=== PATIENT | female | born 1945 | race Caucasian/White ===

== ENCOUNTER 2021-07-20 14:18 | Outpatient (CLI) | payer MEDICARE, MEDICAID, SELFPAY ==
--- NOTE | 2021-07-20 14:31 | USCV_ITS ---
Summer Gardner Age: 75 Gender: F : 1945 Exam Date: 07/20/2021 14:53 Ordering Phys: Nadiya Temple XX Technologist: RUBEN Exam Location: [facility] – [place] Indication: CHRONIC HEART FAILURE BP: 130 / 70 HR: 79 Rhythm: Sinus Technical Quality: Very technically difficult study MEASUREMENTS (Male / Female) Normal Values 2D ECHO LV Diastolic Diameter PLAX 4.6 cm 4.2 - 5.9 / 3.9 - 5.3 cm LV Systolic Diameter PLAX 2.5 cm IVS Diastolic Thickness 1.6 cm 0.6 - 1.0 / 0.6 - 0.9 cm IVS Systolic Thickness 2.1 cm LVPW Diastolic Thickness 1.6 cm 0.6 - 1.0 / 0.6 - 0.9 cm LVPW Systolic Thickness 2.0 cm LV Ejection Fraction 2D Teich 76.8 % LV Ejection Fraction MOD 2C 66.9 % LV Ejection Fraction 2C AL 66.4 % LA Diameter 3.2 cm LA Width 2.9 cm LA Height 3.5 cm RA Width 2.7 cm RA Height 3.6 cm Aorta at Sinotubular Diameter 2.6 cm IVC Diameter 1.4 cm M-MODE Aortic Annulus Diameter 3.1 cm LA Ao Ratio MM 1.0 MV E Point Septal Separation 0.6 cm DOPPLER AV Peak Velocity 144.0 cm/s LVOT Peak Velocity 132.0 cm/s MV Peak Velocity 111.0 cm/s MV Area PHT 4.3 cm squared Mitral E to A Ratio 0.6 MV E' Velocity 36.0 cm/s Mitral E to MV E' Ratio 7.3 Mitral E to LV E' Lateral Ratio 7.1 Mitral E to LV E' Septal Ratio 7.6 TR Peak Velocity 154.7 cm/s TR Peak Gradient 9.6 mmHg TR Mean Velocity 118.7 cm/s TR Mean Gradient 6.3 mmHg TR Velocity Time Integral 34.1 cm TV Peak E Velocity 31.0 cm/s Right Atrial Pressure 3.0 mmHg Pulmonary Artery Systolic Pressu 12.6 mmHg PV Peak Velocity 105.0 cm/s RV Acceleration Time 0.1 s RV Ejection Time 0.3 s RV AcT/ET 0.3 FINDINGS Left Ventricle Technically very limited quality echocardiogram because of poor ultrasonic windows. LV systolic function is normal with EF of 55 to 60%. No regional wall motion normalities seen. Grade 1 diastolic dysfunction. Right Ventricle Grossly normal Right Atrium Grossly normal Left Atrium Grossly normal Mitral Valve Not well visualized. Mild mitral regurgitation Aortic Valve Not well-visualized. No significant stenosis based on Doppler data Tricuspid Valve Mild tricuspid regurgitation. Valve is not well visualized. Pulmonic Valve Not well-visualized Pericardium Grossly normal Aorta IVC CONCLUSIONS Technically very limited quality echocardiogram because of poor ultrasonic windows. LV systolic function is normal with EF 55 to 60%. Grade 1 diastolic dysfunction. Valvular structures are not well-visualized. Mild mitral regurgitation is seen. Compared to prior echocardiogram from 06/25/2018, no significant changes are seen Jay Benites MD (Electronically Signed) Final Date: 01 August 2021 14:17 S
== END 2021-07-20 14:19 | disposition home or self-care (01) ==
PROVIDERS: Family Provider Family Medicine; Visit Provider Nurse Practitioner Family
DX: I50.9 Heart failure, unspecified (principal)
CPT/HCPCS: 93306

== ENCOUNTER → 2021-08-22 12:12 | Outpatient (BNVA) | payer MEDICARE, MEDICAID, SELFPAY | PROVIDERS: Family Provider Family Medicine; PCP Family Medicine; Visit Provider Internal Medicine Critical Care Medicine | DX: G47.33 Obstructive sleep apnea (adult) (pediatric) (principal); J44.9 Chronic obstructive pulmonary disease, unspecified; G47.34 Idiopathic sleep related nonobstructive alveolar hypoventilation; E66.9 Obesity, unspecified; I10 Essential (primary) hypertension; K21.9 Gastro-esophageal reflux disease without esophagitis; E78.5 Hyperlipidemia, unspecified; Z86.16 Personal history of COVID-19 | CPT/HCPCS: 80053; 85025; 99204 ==

== ENCOUNTER → 2021-09-20 09:05 | Outpatient (BNVA) | payer MEDICARE, MEDICAID, SELFPAY | PROVIDERS: Family Provider Family Medicine; PCP Family Medicine; Visit Provider Internal Medicine Cardiovascular Disease | DX: R06.00 Dyspnea, unspecified (principal); I11.0 Hypertensive heart disease with heart failure; I50.32 Chronic diastolic (congestive) heart failure | CPT/HCPCS: 99203; 99204; 99213; 99214 ==

== ENCOUNTER → 2021-10-22 12:30 | Outpatient (BNVA) | payer MEDICARE, MEDICAID, SELFPAY | PROVIDERS: Family Provider Family Medicine; PCP Family Medicine; Visit Provider Internal Medicine Critical Care Medicine | DX: G47.33 Obstructive sleep apnea (adult) (pediatric) (principal); J44.9 Chronic obstructive pulmonary disease, unspecified; G47.34 Idiopathic sleep related nonobstructive alveolar hypoventilation; E66.9 Obesity, unspecified; Z68.42 Body mass index [BMI] 45.0-49.9, adult; Z87.891 Personal history of nicotine dependence; Z99.81 Dependence on supplemental oxygen | CPT/HCPCS: 99214 ==

== ENCOUNTER 2021-10-23 13:27 | Outpatient (CLI) | payer MEDICARE, MEDICAID, SELFPAY ==
--- NOTE | 2021-10-23 14:27 | PFTS_ITS ---
Date of Study:10/23/21 Date of Dictation: MECHANICS: Forced vital capacity (FVC) is normal. Forced expiratory volume in one second (FEV1) is normal. FEV1/FVC is normal. FLOW VOLUME LOOP: Normal. LUNG VOLUMES: Total lung capacity (TLC) is normal. Residual volume (RV) is reduced. DIFFUSING CAPACITY FOR CARBON MONOXIDE: Normal. INTERPRETATION: The prebronchodilator spirometry is normal. The total lung capacity is normal. There is nonspecific reduction in residual volume. Gas exchange (DLCO) is normal. MTDD
[2021-10-23 14:30] VITALS: O2SAT 89; O2SAT 94
== END 2021-10-23 13:28 | disposition home or self-care (01) ==
LOC: RT 13:32
PROVIDERS: PCP Family Medicine; Visit Provider Internal Medicine Critical Care Medicine
DX: J44.9 Chronic obstructive pulmonary disease, unspecified (principal)
CPT/HCPCS: 94010; 94726; 94729; 94760

== ENCOUNTER 2021-12-10 07:43 | Outpatient (CLI) | payer MEDICARE, MEDICAID, SELFPAY ==
--- NOTE | 2021-12-10 | ECG_ITS ---
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 Interpretive Statements NAME OF STUDY: LEXISCAN SESTAMIBI STRESS TEST INDICATION: Chest Pain PROCEDURE: At the baseline, the blood pressure was 137/84 mmHg with a heart rate of 70 bpm. The electrocardiogram showed normal sinus rhythm, normal axis. Artifact. Normal ST and T's. The Lexiscan was infused over a period of 20 seconds. A total of 0.4 milligrams of Lexiscan was infused. The stress phase was continued for a total of 5 minutes. Heart rate at the end of the stress phase was 77 beats per min with a blood pressure of 111/58 mmHg. The EKG at the peak infusion revealed sinus rhythm with no significant ST-T wave changes. The study was terminated due to protocol completion. Sestamibi was injected 20 seconds after the Lexiscan infusion. Blood pressure at the end of the recovery phase was 100/61 mmHg with a heart rate of 76 beats per minute. CONCLUSION: 1. No significant EKG changes with the LexiScan infusion. 2. No LexiScan induced chest pain or cardiac arrhythmia. 3. Normal blood pressure and heart rate response. 4. Sestamibi/sestamibi perfusion scan pending; see separate report. Electronically Signed On 12-12-2021 16:58:04 CDT by Myah Del Cid M.D. [id number]
[2021-12-10 08:08] VITALS: BMI 46.4
--- NOTE | 2021-12-10 08:17 | NMCV_ITS ---
NM aurora perf SPECT r/s* [id number] Summer Gardner Age: 76 Gender: F : 1945 Exam Date: 12/10/2021 08:51 Ordering Phys: Myah Del Cid MD ([email or web address]) Technologist: CRISTY Lerner Exam Location: [facility] Indications: CHEST PAIN STRESS TEST Please see separate stress test report in [facility] for full findings IMAGE PROTOCOL Rest/Stress 1 Lexiscan Day Radiopharmaceutical Dose (mCi) Administration Site Administered by Rest: Tc-99m 10.6 IV CRISTY Jade Sestamibi Stress:Tc-99m 32.9 IV CRISTY aJde Sestamibi Rest: 10-Dec-2021 60 Discovery 630 Stress: 10-Dec-2021 30 Discovery 630 0.4mg Lexiscan. Images obtained in supine and prone position. SPECT RESULTS Technical Quality: Excellent Raw Data Analysis: Normal Image Corrections: No attenuation or motion correction applied Summed Stress Score: 0 Summed Rest Score: 0 Summed Difference Score: 0 PERFUSION FINDINGS SPECT images demonstrate homogeneous tracer distribution throughout the myocardium. FUNCTIONAL RESULTS (calculated via Gated SPECT) Stress Image LV EF (%): 82 Stress EDV (mL):68 TID: 0.92 Stress ESV (mL):12 FUNCTIONAL FINDINGS: The left ventricle is normal in size. Transient Ischemia Dilatation of 0.92. There is normal left ventricular systolic function. The left ventricular ejection fraction is normal with a value of 82%. There is hyperdynamic left ventricular wall thickening. IMPRESSIONS 1. Myocardial perfusion imaging is normal. 2. Overall left ventricular systolic function is normal without regional wall motion abnormalities, LVEF=82%. 3. No significant EKG changes with Lexiscan infusion. Refer to separate report for details. Myah Del Cid MD (Electronically Signed) Final Date: 12 December 2021 16:58 S
[2021-12-10] MEDS: regadenoson 0.4 Mg/5 ml Syringe IVP (09:28)
[2021-12-10 09:49] VITALS: BP 100/61; PULSE 77
== END 2021-12-10 07:44 | disposition home or self-care (01) ==
LOC: CDL 07:46
PROVIDERS: PCP Family Medicine; Visit Provider Internal Medicine Cardiovascular Disease
DX: R07.9 Chest pain, unspecified (principal)
CPT/HCPCS: 78452; 93017; A9500; J2785

== ENCOUNTER → 2021-12-20 10:30 | Outpatient (BNVA) | payer MEDICARE, MEDICAID, SELFPAY | PROVIDERS: PCP Family Medicine; Visit Provider Internal Medicine Cardiovascular Disease | DX: R06.00 Dyspnea, unspecified (principal); I11.0 Hypertensive heart disease with heart failure; I50.32 Chronic diastolic (congestive) heart failure; Z87.891 Personal history of nicotine dependence | CPT/HCPCS: 99214 ==

== ENCOUNTER → 2022-05-02 08:16 | Outpatient (BNVA) | payer MEDICARE, MEDICAID, SELFPAY | PROVIDERS: PCP Family Medicine; Visit Provider Internal Medicine Pulmonary Disease | DX: J44.9 Chronic obstructive pulmonary disease, unspecified (principal); G47.33 Obstructive sleep apnea (adult) (pediatric); G47.34 Idiopathic sleep related nonobstructive alveolar hypoventilation; E66.9 Obesity, unspecified; Z68.42 Body mass index [BMI] 45.0-49.9, adult; Z87.891 Personal history of nicotine dependence | CPT/HCPCS: 99214 ==

== ENCOUNTER → 2022-08-23 09:08 | Outpatient (BNVA) | payer MEDICARE, MEDICAID, SELFPAY | PROVIDERS: PCP Family Medicine; Visit Provider Internal Medicine Cardiovascular Disease | DX: R06.00 Dyspnea, unspecified (principal); I11.0 Hypertensive heart disease with heart failure; I50.32 Chronic diastolic (congestive) heart failure; E78.2 Mixed hyperlipidemia; G47.33 Obstructive sleep apnea (adult) (pediatric); J44.9 Chronic obstructive pulmonary disease, unspecified; E66.9 Obesity, unspecified; Z68.42 Body mass index [BMI] 45.0-49.9, adult; Z87.891 Personal history of nicotine dependence | CPT/HCPCS: 99214 ==

== ENCOUNTER → 2022-11-06 08:32 | Outpatient (BNVA) | payer MEDICARE, MEDICAID, SELFPAY | PROVIDERS: PCP Family Medicine; Visit Provider Internal Medicine Pulmonary Disease | DX: J44.9 Chronic obstructive pulmonary disease, unspecified (principal); G47.33 Obstructive sleep apnea (adult) (pediatric); G47.34 Idiopathic sleep related nonobstructive alveolar hypoventilation; E66.9 Obesity, unspecified; I50.32 Chronic diastolic (congestive) heart failure; Z68.42 Body mass index [BMI] 45.0-49.9, adult; Z87.891 Personal history of nicotine dependence | CPT/HCPCS: 99214 ==

== ENCOUNTER 2023-07-26 06:02 | Emergency (ER) | payer MEDICARE, MEDICAID, SELFPAY ==
[2023-07-26 06:02] VITALS: BP 124/67; PULSE 77; RESP 16; TEMP 36.5; O2SAT 92; BMI 40.5
--- NOTE | 2023-07-26 06:18 | XRR_ITS ---
PROCEDURE INFORMATION: Exam: XR Right Knee Exam date and time: 07/26/2023 6:22 AM Age: 77 years old Clinical indication: Injury or trauma; Fall; Blunt trauma; Right; Patient HX: Patient fell this morning onto the floor at home walking to bathroom. C/O RT shoulder, elbow, and knee pain. TECHNIQUE: Imaging protocol: Radiologic exam of the right knee. Views: 3 views. COMPARISON: No relevant prior studies available. FINDINGS: Bones/joints: No acute fracture or dislocation. Mild medial and patellofemoral compartment degenerative change. Mild patellar enthesophytes. No joint effusion. Soft tissues: Unremarkable. XR/XR knee RT 3V* [id number] IMPRESSION: No acute findings.
--- NOTE | 2023-07-26 06:18 | XRR_ITS ---
PROCEDURE INFORMATION: Exam: XR Right Shoulder Exam date and time: 07/26/2023 6:22 AM Age: 77 years old Clinical indication: Injury or trauma; Fall; Blunt trauma (contusions or hematomas); Right; Prior surgery; Surgery date: 6+ months; Surgery type: Brain stimulator; Patient HX: Patient fell this morning onto the floor at home walking to bathroom. C/O RT shoulder, elbow, and knee pain. TECHNIQUE: Imaging protocol: Radiologic exam of the right shoulder. Views: 2 or more views. COMPARISON: CR (UP EXM, ) 07/26/2023 6:22 AM FINDINGS: Tubes, catheters and devices: Right chest generator with leads coursing superiorly to the right neck and beyond the field of view. Bones/joints: Mildly displaced comminuted proximal humerus fracture involving the neck and greater tuberosity. No dislocation. Mild acromioclavicular joint arthropathy. Degenerative changes along the imaged spine. Soft tissues: Right shoulder soft tissue swelling. XR/XR shoulder RT min 2V* [id number] IMPRESSION: Mildly displaced comminuted proximal humerus fracture involving the neck and greater tuberosity.
--- NOTE | 2023-07-26 06:18 | XRR_ITS ---
PROCEDURE INFORMATION: Exam: XR Right Elbow Exam date and time: 07/26/2023 6:22 AM Age: 77 years old Clinical indication: Injury or trauma; Fall; Blunt trauma (contusions or hematomas); Right; Patient HX: Patient fell this morning onto the floor at home walking to bathroom. C/O RT shoulder, elbow, and knee pain. TECHNIQUE: Imaging protocol: Radiologic exam of the right elbow. Views: 3 or more views. COMPARISON: CR (CHEST, ) 07/26/2023 6:22 AM FINDINGS: Bones/joints: No acute fracture or dislocation. Joint spacing and alignment are maintained. No joint effusion. Soft tissues: Unremarkable. XR/XR elbow RT min 3V* [id number] IMPRESSION: No acute findings.
--- NOTE | 2023-07-26 06:22 | ED_ITS ---
HPI - Fall 2 General: Chief Complaint: Fall Stated Complaint: Fall Time Seen by Provider: 07/26/23 06:18 Source: patient Mode of arrival: ambulatory History of Present Illness: 77-year-old female presents emergency ro om from home. She had a mechanical ground-level fall when she tripped while walking to the bathroom at her home. She had gotten up to go to the bathroom stumbled and fell. She is complaining of pain to her right elbow right knee and right shoulder. She is holding her arm cradled across her abdomen on arrival from EMS. She denies loss consciousness denies any other injury she does have an abrasion on the right elbow. Unsure of last tetanus shot complaint: fall Onset (ago): minute(s) Fall from: standing Place fall occurred: home Loss of consciousness: None Context: tripped/slipped Location of injury - extremities: Right: shoulder, elbow and knee Associated symptoms-after fall: Denies abdominal pain, chest pain, confusion, difficulty walking, headache(s), hematuria, lightheadedness, neck pain, numbness, short of breath, vertigo or weakness Review of Systems 2 Const: Denies: fever(s) or chills Card: Denies: chest pain or lightheadedness Resp: Denies: dyspnea GI: Denies: abdominal pain : Denies: dysuria, urinary frequency, urinary urgency or hematuria Musc: Denies: neck pain or back pain Skin/Breast: Denies: rash Neuro: Denies: headache(s), difficulty walking, vertigo or confusion PFSH ED 2 PFSH: Medical History Type 2 diabetes mellitus Hearing loss Osteoarthritis of spine with radiculopathy, lumbar region Mixed hyperlipidemia Mixed incontinence urge and stress Obesity GERD (gastroesophageal reflux disease) Allergic rhinitis Diverticulosis of colon OTONIEL (obstructive sleep apnea) 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 Chronic diastolic heart failure Benign hypertension Restless leg syndrome Fatty liver Essential tremor Vitamin D deficiency Aortic atherosclerosis Calcified granuloma of lung Extradural lipoma of spine COVID-19 Osteoporosis Nocturnal hypoxia Chronic respiratory failure with hypoxia Chronic obstructive pulmonary disease Surgical History History of back surgery S/P hysterectomy S/P appendectomy S/P coronary angiogram History of ankle surgery S/P nasal surgery S/P laparoscopic cholecystectomy S/P deep brain stimulator placement Family History Father Myocardial infarction Lung disease Emphysema Hypertension Brother Myocardial infarction Hypertension Sister Myocardial infarction X3 sisters Stroke Hypertension Diabetes Mother Stroke Hypertension Social History Smoking and tobacco/nicotine status: former use of tobacco/nicotine Quit status (tobacco/nicotine): has quit using Year quit tobacco: 1994 Former quit date comment: 2 ppd X 40 years Physical Exam 2 Const: GENERAL APPEARANCE: cooperative and comfortable O RIENTATION/CONSCIOUSNESS: Yes awake, Yes oriented to person, Yes oriented to place and Yes oriented to time HENMT: COMMON NORMALS: normocephalic, atraumatic and hearing grossly normal bilaterally HEAD & SCALP: normocephalic and atraumatic Resp: COMMON NORMALS: normal respiratory effort, No retractions, No use of accessory muscles and clear to auscultation bilaterally AUSCULTATION: clear to auscultation bilaterally Cardio: COMMON NORMALS: regular rate, regular rhythm and No murmurs present (Cardio) RATE: regular rate RHYTHM: regular rhythm GI: COMMON NORMALS: Soft to palpation and No hepatosplenomegaly present A USCULTATION: Yes normoactive bowel sounds PALPATION: Yes Soft to palpation, No Tenderness to palpation present (GI), No Guarding due to palpation present (GI) and Yes No hepatosplenomegaly present Extremity: OTHER: Moderate swelling of the right proximal humerus pain to palpation unable to test range of motion due to pain. X-ray shows proximal humerus fracture Neuro: SENSORIUM/ORIENTATION: Yes oriented to person, Yes oriented to place and Yes oriented to time Skin: OTHER: Abrasion over the olecranon process in the anterior portion of the knee both on the right side no active bleeding no full-thickness laceration Course 2 Vital Signs: Vital signs: Vital Signs Temperature 97.7 F 07/26/23 06:02 Pulse Rate 77 07/26/23 06:02 Respiratory Rate 16 07/26/23 06:02 Blood Pressure 124/67 07/26/23 06:02 Pulse Oximetry 92 07/26/23 06:02 Oxygen Delivery Me thod Nasal Cannula 07/26/23 06:02 Oxygen Flow Rate 2 07/26/23 06:02 MDM - Fall Medical Decision Making Right proximal humerus fracture patient placed in a shoulder immobilizer. Hydrocodone at discharge for pain can apply ice to the proximal humerus. Should leave in the shoulder immobilizer with the exception of being briefly out for bathing or changing clothing. Case management to arrange for follow-up with orthopedics Medical Records I reviewed the patient's medical records. Lab Data I reviewed the patient's lab results. 07/26/23 07:22 07/26/23 07:22 Radiology Impressions Elbow X-Ray 07/26/23 06:18 IMPRESSION: No acute findings. Knee X-Ray 07/26/23 06:18 IMPRESSION: No acute findings. Shoulder X-Ray 07/26/23 06:18 IMPRESSION: Mildly displaced comminuted proximal humerus fracture involving the neck and greater tuberosity. Shoulder CT 07/26/23 06:26 IMPRESSION: Mildly displaced comminuted proximal humerus fracture involving the neck and greater tuberosity with extension to the posterior head. Laboratory Results WBC 14.27 10^3/uL (3.29-11.43) H 07/26/23 07:22 RBC 4.37 10^6/uL (3.85-5.65) 07/26/23 07:22 Hgb 12.80 g/dL (11.27-16.99) 07/26/23 07:22 Hct 40.3 % (36-47) 07/26/23 07:22 MCV 92.2 fl (85-98) 07/26/23 07:22 MCH 29.3 pg (27-33) 07/26/23 07:22 MCHC 31.8 g/dL (30-55) 07/26/23 07:22 RDW 13.4 % (12.1-15.1) 07/26/23 07:22 Plt Count 247 10^3/cmm (157-399) 07/26/23 07:22 MPV 11.1 fL (7.4-10.4) H 07/26/23 07:22 Neut % (Auto) 73.2 % 07/26/23 07:22 Lymph % (Auto) 13.2 % 07/26/23 07:22 [place] % (Auto) 9.5 % 07/26/23 07:22 Eos % (Auto) 2.1 % 07/26/23 07:22 Baso % (Auto) 0.5 % 07/26/23 07:22 Neut # (Auto) 10.43 10^3/uL (1.8-7.7) H 07/26/23 07:22 Lymph # (Auto) 1.9 10^3/uL (0.8-4.8) 07/26/23 07:22 [place]leigh # (Auto) 1.4 10^3/uL (0.2-0.9) H 07/26/23 07:22 Eos # (Auto) 0.3 10^3/uL (0.0-0.8) 07/26/23 07:22 Baso # (Auto) 0.1 10^3/uL (0.0-0.1) 07/26/23 07:22 Nucleated RBC % (auto) 0 % 07/26/23 07:22 Nucleated RBCs # 0.0 /100WBC 07/26/23 07:22 Sodium 135 mmol/L (136-145) L 07/26/23 07:22 Potassium 4.6 mmol/L (3.5-5.1) 07/26/23 07:22 Chloride 97 mmol/L (98-107) L 07/26/23 07:22 Carbon Dioxide 26 mmol/L (22-29) 07/26/23 07:22 Anion Gap 16.6 (5-19) 07/26/23 07:22 BUN 33 mg/dL (8-23) H 07/26/23 07:22 Creatinine 1.1 mg/dL (0.5-0.9) H 07/26/23 07:22 GFR Calculation Not Reportable 07/26/23 07:22 Glucose 203 mg/dL (65-115) H 07/26/23 07:22 Calculated Osmolality 293 mOsm/kg (285-295) 07/26/23 07:22 Calcium 9.1 mg/dL (8.5-10.5) 07/26/23 07:22 Total Bilirubin 0.4 mg/dL (0.15-1.2) 07/26/23 07:22 AST 18 U/L (0-32) 07/26/23 07:22 ALT 13 U/L (0-33) 07/26/23 07:22 Alkaline Phosphatase 92 U/L (35-105) 07/26/23 07:22 Total Protein 7.2 g/dL (6.6-8.7) 07/26/23 07:22 Albumin 3.7 g/dL (3.5-5.2) 07/26/23 07:22 Globulin 3.5 g/dL (1.3-4.6) 07/26/23 07:22 All radiology interpretation(s) finalized by discharge Discharge Plan Discharge Patient Disposition: Home Clinical Impression: Closed fracture of right proximal humerus Qualifiers: Encounter type: initial encounter Fracture morphology: other fracture Fracture alignment: nondisplaced Qualified Code(s): S42.294A - Other nondisplaced fracture of upper end of right humerus, initial encounter for closed fracture Condition: Stable Prescriptions: New hydrocodone-acetaminophen 5-325 mg tablet 1 tab PO Q6H PRN (Reason: pain) Qty: 15 0RF No Action simvastatin 40 mg tablet 40 mg PO DAILY omeprazole 40 mg capsule,delayed release(DR/EC) 40 mg PO DAILY ipratropium bromide 21 mcg (0.03 %) spray,non-aerosol 2 spray intranasal BID Rx Instructions: administer into each nostril pregabalin [Lyrica] 150 mg capsule 150 mg PO BID ropinirole 0.5 mg tablet 1.5 mg PO .COMPLEX Rx Instructions: 1.5 mg PO every HS; ferrous sulfate 325 mg (65 mg iron) tablet 325 mg PO DAILY duloxetine 60 mg capsule, delayed rel sprinkle 60 mg PO DAILY glipizide 10 mg tablet 10 mg PO BID albuterol sulfate 90 mcg/actuation HFA aerosol inhaler 2 puff inhalation 6XD PRN (Reason: shortness of breath or wheezing) montelukast 10 mg tablet 10 mg PO DAILY metformin 1,000 mg tablet 1,000 mg PO BIDWMEAL cetirizine [Zyrtec] 10 mg tablet 10 mg PO DAILY furosemide [Lasix] 80 mg tablet 80 mg PO BID Humalog U-100 Insulin 100 unit/mL cartridge See Rx Instructions .ROUTE .COMPLEX Rx Instructions: s/s before breakfast and supper; losartan 25 mg tablet 25 mg PO DAILY spironolactone 50 mg tablet 50 mg PO DAILY hydrocodone-acetaminophen 5-325 mg tablet 2 tab PO Q8H PRN Stiolto Respimat 2.5-2.5 mcg/actuation mist 2 puff inhalation DAILY 90 Days Qty: 12 3RF Discharge Orders: Discharge ED (Routine); Ordered 07/26/23 Ordered By: Porter Martínez Referrals: Vikram Fleming [Primary Care Provider] - Patient Instructions: Opioid Safety, Pain Management Activity Restrictions/Additional Instructions: Thank you for choosing [facility] for your healthcare needs today. It is very important that you follow up as instructed or that you return to the Emergency Department should you have concerns or if your condition changes or worsens in any way. You were seen today for a fall. You have a fracture of the upper and of the humerus (upper arm bone). These are usually treated with a shoulder immobilizer. Will have you follow-up with the orthopedist next week. You were given pain medications. Also recommend you use ice to the upper arm for comfort. You may take your arm out of the shoulder immobilizer to bays however you should keep the arm cradled and close to the body when you are out of the shoulder immobilizer. You should only remove it for brief periods for things such as bathing or changing her clothes. Case management make arrangements for the follow-up with orthopedic clinic. Coding Level of Care Code ED Mechanical Project Engineer for Enedina Tello
--- NOTE | 2023-07-26 06:26 | CTR_ITS ---
PROCEDURE INFORMATION: Exam: CT Right Upper Extremity Without Contrast, Shoulder Exam date and time: 07/26/2023 6:43 AM Age: 77 years old Clinical indication: Injury or trauma; Fall; Blunt trauma (contusions or hematomas); Shoulder; Right TECHNIQUE: Imaging protocol: Computed tomography of the right upper extremity without contrast. Exam focused on the shoulder. Radiation optimization: All CT scans at this facility use at least one of these dose optimization techniques: automated exposure control; mA and/or kV adjustment per patient size (includes targeted exams where dose is matched to clinical indication); or iterative reconstruction. COMPARISON: 1. CR (CHEST, ) 07/26/2023 6:22 AM 2. CR (UP EXM, ) 07/26/2023 6:22 AM RADIATION DOSE METRICS: Total DLP (mGy-cm): 445.46 FINDINGS: Tubes, catheters and devices: Right chest generator with partially visualized leads coursing superiorly to the right neck. Bones/joints: There is a mildly displaced comminuted proximal humerus fracture involving the neck and greater tuberosity, and extending to the posterior head. Small corticated ossicle anteromedial to the lesser tuberosity in keeping with sequela of old trauma. No dislocation. No aggressive osteolytic or blastic lesion. Mild acromioclavicular joint arthropathy. Soft tissues: Soft tissue swelling about the proximal humerus. CT/CT shoulder RT wo con* [id number] IMPRESSION: Mildly displaced comminuted proximal humerus fracture involving the neck and greater tuberosity with extension to the posterior head.
[2023-07-26] MEDS: ondansetron 2 mg/ML SDV 2 mL 4 MG IVP (07:16)
[2023-07-26] MEDS: morphine 4 mg/mL SDV 1 mL IVP (07:17)
[2023-07-26 07:40] LABS: Basophils # 0.1 10^3/uL (0.0-0.1); Basophils % 0.5 %; Eosinophils # 0.3 10^3/uL (0.0-0.8); Eosinophils % 2.1 %; Hematocrit 40.3 % (36-47); Lymphocytes # 1.9 10^3/uL (0.8-4.8); Lymphocytes % 13.2 %; Mean Corpuscular HGB Conc 31.8 g/dL (30-55); Mean Corpuscular Hemoglobin 29.3 pg (27-33); Mean Corpuscular Volume 92.2 fl (85-98); Mean Platelet Volume 11.1 fL (7.4-10.4); Monocytes # 1.4 10^3/uL (0.2-0.9); Monocytes % 9.5 %; Neutrophils # 10.43 10^3/uL (1.8-7.7); Neutrophils % 73.2 %; Nucleated Red Blood Cells % 0 %; Platelet Count 247 10^3/cmm (157-399); Red Blood Count 4.37 10^6/uL (3.85-5.65); Red Cell Distribution Width 13.4 % (12.1-15.1); White Blood Count 14.27 10^3/uL (3.29-11.43)
[2023-07-26 07:50] LABS: Alanine Aminotransferase 13 U/L (0-33); Albumin Level 3.7 g/dL (3.5-5.2); Alkaline Phosphatase 92 U/L (35-105); Anion Gap 16.6 (5-19); Aspartate Amino Transferase 18 U/L (0-32); Blood Urea Nitrogen 33 mg/dL (8-23); Calcium 9.1 mg/dL (8.5-10.5); Carbon Dioxide 26 mmol/L (22-29); Chloride 97 mmol/L (98-107); Globulin 3.5 g/dL (1.3-4.6); Glucose 203 mg/dL (65-115); Osmolality Calculated 293 mOsm/kg (285-295); Potassium 4.6 mmol/L (3.5-5.1); Sodium 135 mmol/L (136-145); Total Bilirubin 0.4 mg/dL (0.15-1.2); Total Protein 7.2 g/dL (6.6-8.7)
[2023-07-26 08:09] LABS: Creatinine Clr Calc Pharmacy 51.1424
[2023-07-26 08:35] VITALS: BP 119/65; PULSE 87; RESP 18; O2SAT 91
--- NOTE | 2023-07-28 07:36 | DCPLANNER ---
message sent to ortho for er f/u
== END 2023-07-26 08:38 | disposition home or self-care (01) ==
PROVIDERS: Emergency Provider Family Medicine; PCP Family Medicine
DX: S42.294A Other nondisplaced fracture of upper end of right humerus, initial encounter for closed fracture (principal); Z79.84 Long term (current) use of oral hypoglycemic drugs; Z79.4 Long term (current) use of insulin; Z87.891 Personal history of nicotine dependence; E11.9 Type 2 diabetes mellitus without complications; E78.2 Mixed hyperlipidemia; I11.0 Hypertensive heart disease with heart failure; I50.32 Chronic diastolic (congestive) heart failure; J44.9 Chronic obstructive pulmonary disease, unspecified; W01.0XXA Fall on same level from slipping, tripping and stumbling without subsequent striking against object, initial encounter; Y92.009 Unspecified place in unspecified non-institutional (private) residence as the place of occurrence of the external cause
CPT/HCPCS: 73030; 73080; 73200; 73562; 80053; 85025; 96374; 96375; 99285; J2270; J2405

== ENCOUNTER 2023-08-02 01:26 | Emergency (ER) | payer MEDICARE, MEDICAID, SELFPAY ==
[2023-08-02 01:28] VITALS: BP 134/74; PULSE 85; RESP 12; TEMP 36.6; O2SAT 92; BMI 34.3
--- NOTE | 2023-08-02 01:32 | CTR_ITS ---
PROCEDURE INFORMATION: Exam: CT Head Without Contrast Exam date and time: 08/02/2023 1:55 AM Age: 77 years old Clinical indication: Injury or trauma; Blunt trauma (contusions or hematomas); Prior surgery; Surgery date: 6+ months; Surgery type: Brain stimulator; Patient HX: EMS arrival for fall at home. Patient fell hitting back of head on floor. C/O OCONNELL with neck pain. TECHNIQUE: Imaging protocol: Computed tomography of the head without contrast. Radiation optimization: All CT scans at this facility use at least one of these dose optimization techniques: automated exposure control; mA and/or kV adjustment per patient size (includes targeted exams where dose is matched to clinical indication); or iterative reconstruction. COMPARISON: No relevant prior studies available. RADIATION DOSE METRICS: Total DLP (mGy-cm): 1052.48 FINDINGS: Tubes, catheters and devices: Bilateral deep brain stimulators, terminating in the thalami, and resulting in mild beam hardening artifact. Brain: Age-appropriate diffuse cerebral volume loss. No acute intracranial hemorrhage. No abnormal extra-axial fluid collection. No midline shift or mass effect. No acute large territory infarct. Chronic white matter changes, likely to be chronic small-vessel ischemic changes. Cerebral ventricles: No ventriculomegaly. Paranasal sinuses: Visualized paranasal sinuses are clear. Mastoid air cells: Trace right mastoid effusion, nonspecific. Bones: No acute fracture. Bilateral princess holes for deep brain stimulators. Soft tissues: Unremarkable. CT/CT head wo con* [id number] IMPRESSION: 1. No acute intracranial abnormality identified. 2. Bilateral deep brain stimulators, terminating in the thalami, resulting in mild beam hardening artifact.
--- NOTE | 2023-08-02 01:32 | CTR_ITS ---
PROCEDURE INFORMATION: Exam: CT Cervical Spine Without Contrast Exam date and time: 08/02/2023 1:57 AM Age: 77 years old Clinical indication: Injury or trauma; Blunt trauma; Patient HX: EMS arrival for fall at home. Patient fell hitting back of head on floor. C/O OCONNELL with neck pain. TECHNIQUE: Imaging protocol: Computed tomography of the cervical spine without contrast. Radiation optimization: All CT scans at this facility use at least one of these dose optimization techniques: automated exposure control; mA and/or kV adjustment per patient size (includes targeted exams where dose is matched to clinical indication); or iterative reconstruction. COMPARISON: CT head wo con* 08/02/2023 1:55 AM RADIATION DOSE METRICS: Total DLP (mGy-cm): 1117.77 FINDINGS: Tubes, catheters and devices: Mild streak artifact from deep brain stimulator leads in the right posterior neck. Bones: No acute fracture or subluxation. Hion-tn-erdxoiga chronic degenerative changes without severe spinal stenosis. Soft tissues: Visualized paravertebral soft tissues demonstrate no acute abnormality. CT/CT cervical spin wo con* [id number] IMPRESSION: No acute findings.
--- NOTE | 2023-08-02 01:32 | XRR_ITS ---
PROCEDURE INFORMATION: Exam: XR Right Shoulder Exam date and time: 08/02/2023 1:35 AM Age: 77 years old Clinical indication: Injury or trauma; Blunt trauma (contusions or hematomas); Right; Patient HX: Patient fell at home this morning. C/O RT shoulder pain. Sustained humeral fracture due to fall on 07/26/2023. TECHNIQUE: Imaging protocol: Radiologic exam of the right shoulder. Views: 2 or more views. COMPARISON: CT shoulder RT wo con* [id number] 07/26/2023 6:43 AM FINDINGS: Bones/joints: Right proximal humeral fracture, similar in appearance compared to prior imaging. Questionable slight increased displacement. Mild degenerative changes of the acromioclavicular joint. Soft tissues: Moderate diffuse soft tissue swelling. XR/XR shoulder RT min 2V* [id number] IMPRESSION: Questionable slight increased displacement of right proximal humeral fracture difficult to compare given slight differences in projection.
--- NOTE | 2023-08-02 01:32 | XRR_ITS ---
PROCEDURE INFORMATION: Exam: XR Right Elbow Exam date and time: 08/02/2023 1:35 AM Age: 77 years old Clinical indication: Injury or trauma; Blunt trauma (contusions or hematomas); Right; Patient HX: Fall at home this morning. C/O RT elbow pain. TECHNIQUE: Imaging protocol: Radiologic exam of the right elbow. Views: 3 or more views. COMPARISON: CR (UP EXM, ) 07/26/2023 6:22 AM FINDINGS: Limitations: Oblique lateral view. Bones/joints: Evaluation for joint effusion is limited. No definitive evidence of acute fracture or dislocation. Soft tissues: The soft tissues are within normal limits. XR/XR elbow RT min 3V* [id number] IMPRESSION: No definitive evidence of acute fracture or dislocation.
--- NOTE | 2023-08-02 01:33 | ED_ITS ---
HPI - Fall General: Chief Complaint: Fall Stated Complaint: FALL Time Seen by Provider: 08/02/23 01:29 Source: patient and EMS Mode of arrival: EMS Limitations: no limitations History of Present Illness: 77-year-old female states that she had a fall tonight at home. Patient was seen here the fall a week ago and had a humerus fracture she does have a sling on that arm she states when she fell the night she fell on that arm as well as a ground-level fall she has pain in her right shoulder states she also hit her right elbow and has slight headache and neck pain hit the back of her head she denies any other injuries rates her pain a 6 out of 10 currently Associated symptoms-after fall: Reports headache(s) and neck pain; Denies abdominal pain or chest pain Review of Systems Const: Denies: fever(s), chills, body aches or change in appetite Eyes: Denies: blurry vision or eye discomfort ENMT: Denies: throat pain or dental pain Card: Denies: chest pain Resp: Denies: dyspnea GI: Denies: abdominal pain, nausea, vomiting or diarrhea Musc: Reports: neck pain and extremity pain; Denies: back pain Skin/Breast: Denies: rash Neuro: Reports: headache(s) PFSH ED PFSH: Medical History Type 2 diabetes mellitus Hearing loss Osteoarthritis of spine with radiculopathy, lumbar region Mixed hyperlipidemia Mixed incontinence urge and stress Obesity GERD (gastroesophageal reflux disease) Allergic rhinitis Diverticulosis of colon OTONIEL (obstructive sleep apnea) 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 Chronic diastolic heart failure Benign hypertension Restless leg syndrome Fatty liver Essential tremor Vitamin D deficiency Aortic atherosclerosis Calcified granuloma of lung Extradural lipoma of spine COVID-19 Osteoporosis Nocturnal hypoxia Chronic respiratory failure with hypoxia Chronic obstructive pulmonary disease Surgical History History of back surgery S/P hysterectomy S/P appendectomy S/P coronary angiogram History of ankle surgery S/P nasal surgery S/P laparoscopic cholecystectomy S/P deep brain stimulator placement Family History Father Myocardial infarction Lung disease Emphysema Hypertension Brother Myocardial infarction Hypertension Sister Myocardial infarction X3 sisters Stroke Hypertension Diabetes Mother Stroke Hypertension Social History Smoking and tobacco/nicotine status: former use of tobacco/nicotine Quit status (tobacco/nicotine): has quit using Year quit tobacco: 1994 Former quit date comment: 2 ppd X 40 years Physical Exam Const: COMMON NORMALS: no acute distress, patient oriented x3 and healthy appearing HENMT: COMMON NORMALS: normocephalic HEAD & SCALP: normocephalic Neck/C-Spine: COMMON NORMALS: supple Chest: COMMONS NORMALS: normal inspection of the chest and normal palpation of entire chest wall Resp: COMMON NORMALS: normal respiratory effort, No retractions, No use of accessory muscles and clear to auscultation bilaterally AUSCULTATION: clear to auscultation bilaterally Cardio: COMMON NORMALS: regular rate, regular rhythm and No murmurs present (Cardio) RATE: regular rate RHYTHM: regular rhythm GI: COMMON NORMALS: Normal to inspection, nondistended, normoactive bowel sounds present, Soft to palpation, non-tender and no masses PALPATION: Yes Soft to palpation Extremity: NARRATIVE EXTREMITY EXAM: Tenderness to right elbow and shoulder has a skin tear to the right elbow no lacerations Neuro: COMMON NORMALS: patient oriented x3, moves all extremities and no focal motor deficits Psych: COMMON NORMALS: mental status grossly normal, Normal thought process present and cooperative THOUGHT PROCESS: Normal thought process present Skin: COMMON NORMALS: no rashes or lesions noted and no wounds GENERAL SKIN EXAM: no rashes or lesions noted Course Vital Signs: Vital signs: Vital Signs Temperature 98 F 08/02/23 01:28 Pulse Rate 85 08/02/23 01:28 Respiratory Rate 12 08/02/23 01:28 Blood Pressure 134/74 08/02/23 01:28 Pulse Oximetry 92 08/02/23 01:28 Oxygen Delivery Me thod Nasal Cannula 08/02/23 01:28 Oxygen Flow Rate 2 08/02/23 01:28 MDM - Fall Medical Decision Making Patient presents here after a fall she has no new injuries still has a fracture of right humerus. She is well-appearing here she stable for discharge follow-up PCP return if worsening. Medical Records I reviewed the patient's medical records. Lab Data Radiology Impressions Cervical Spine CT 08/02/23 01:32 IMPRESSION: No acute findings. Head CT 08/02/23 01:32 IMPRESSION: 1. No acute intracranial abnormality identified. 2. Bilateral deep brain stimulators, terminating in the thalami, resulting in mild beam hardening artifact. Shoulder X-Ray 08/02/23 01:32 IMPRESSION: Questionable slight increased displacement of right proximal humeral fracture difficult to compare given slight differences in projection. All radiology interpretation(s) finalized by discharge Discharge Plan Discharge Patient Disposition: Home Clinical Impression: Fall Closed fracture of right proximal humerus Qualifiers: Encounter type: initial encounter Fracture morphology: other fracture Fracture alignment: nondisplaced Qualified Code(s): S42.294A - Other nondisplaced fracture of upper end of right humerus, initial encounter for closed fracture Condition: Stable Prescriptions: New hydrocodone-acetaminophen 5-325 mg tablet 1 tab PO Q6H PRN (Reason: pain) Qty: 14 0RF No Action simvastatin 40 mg tablet 40 mg PO DAILY omeprazole 40 mg capsule,delayed release(DR/EC) 40 mg PO DAILY ipratropium bromide 21 mcg (0.03 %) spray,non-aerosol 2 spray intranasal BID Rx Instructions: administer into each nostril pregabalin [Lyrica] 150 mg capsule 150 mg PO BID ropinirole 0.5 mg tablet 1.5 mg PO .COMPLEX Rx Instructions: 1.5 mg PO every HS; ferrous sulfate 325 mg (65 mg iron) tablet 325 mg PO DAILY duloxetine 60 mg capsule, delayed rel sprinkle 60 mg PO DAILY glipizide 10 mg tablet 10 mg PO BID albuterol sulfate 90 mcg/actuation HFA aerosol inhaler 2 puff inhalation 6XD PRN (Reason: shortness of breath or wheezing) montelukast 10 mg tablet 10 mg PO DAILY metformin 1,000 mg tablet 1,000 mg PO BIDWMEAL cetirizine [Zyrtec] 10 mg tablet 10 mg PO DAILY furosemide [Lasix] 80 mg tablet 80 mg PO BID Humalog U-100 Insulin 100 unit/mL cartridge See Rx Instructions .ROUTE .COMPLEX Rx Instructions: s/s before breakfast and supper; losartan 25 mg tablet 25 mg PO DAILY spironolactone 50 mg tablet 50 mg PO DAILY hydrocodone-acetaminophen 5-325 mg tablet 2 tab PO Q8H PRN Stiolto Respimat 2.5-2.5 mcg/actuation mist 2 puff inhalation DAILY 90 Days Qty: 12 3RF hydrocodone-acetaminophen 5-325 mg tablet 1 tab PO Q6H PRN (Reason: pain) Qty: 15 0RF Discharge Orders: Discharge ED (Routine); Ordered 08/02/23 Ordered By: Kirt Jennings Referrals: Vikram Fleming [Primary Care Provider] - Discharge Diet: Advance as tolerated Discharge Activity: Resume usual activity Patient Instructions: Arm Fracture in Adults (ED), Fall Prevention (ED) Coding Level of Care Code ED Central Processing Technician for Enedina Tello
[2023-08-02 04:14] VITALS: PULSE 82; O2SAT 98
== END 2023-08-02 04:15 | disposition home or self-care (01) ==
PROVIDERS: Emergency Provider Emergency Medicine; PCP Family Medicine
DX: S42.294A Other nondisplaced fracture of upper end of right humerus, initial encounter for closed fracture (principal); Z79.4 Long term (current) use of insulin; Z79.84 Long term (current) use of oral hypoglycemic drugs; Z87.891 Personal history of nicotine dependence; E11.9 Type 2 diabetes mellitus without complications; E78.2 Mixed hyperlipidemia; I11.0 Hypertensive heart disease with heart failure; I50.9 Heart failure, unspecified
CPT/HCPCS: 70450; 72125; 73030; 73080; 99284